=== PATIENT | male | born 1960 | race Caucasian/White ===

== ENCOUNTER 2023-08-04 01:34 | Emergency (ER) | payer SELFPAY ==
[2023-08-04] MEDS ORDERED: Aspirin 81 MG Tab.Chew PO ONE (01:52)
[2023-08-04 01:57] LABS: BASOPHILS ABSOLUTE AUTO 0.04 K/uL (0.00-0.20); BASOPHILS PERCENT AUTO 0.5 % (0.0-1.0); EOSINOPHILS ABSOLUTE AUTO 0.19 K/uL (0.00-0.45); EOSINOPHILS PERCENT AUTO 2.2 % (0.0-6.0); HEMATOCRIT 46.8 % (42.0-52.0); HEMOGLOBIN 15.9 g/dL (14.0-18.0); IMMATURE GRAN ABSOLUTE AUTO 0.02 K/uL (0.00-0.05); IMMATURE GRAN PERCENT AUTO 0.2 % (0.0-0.4); LYMPHOCYTES ABSOLUTE AUTO 1.76 K/uL (1.00-4.80); LYMPHOCYTES PERCENT AUTO 20.5 % (24.0-44.0); MEAN CORPUSCULAR HEMOGLOBIN 30.2 pg (28.0-32.0); MEAN CORPUSCULAR VOLUME 88.8 fL (83.0-99.0); MEAN PLATELET VOLUME 9.8 fL (9.4-12.4); MONOCYTES ABSOLUTE AUTO 0.56 K/uL (0.00-0.80); MONOCYTES PERCENT AUTO 6.5 % (0.0-8.0); NEUTROPHILS ABSOLUTE AUTO 6.03 K/uL (1.80-7.70); NEUTROPHILS PERCENT AUTO 70.1 % (41.0-71.0); PLATELET COUNT,PLT 279 K/uL (150-400); RED BLOOD CELL COUNT 5.27 M/uL (4.52-5.90)
[2023-08-04 02:11] LABS: CALCIUM 8.5 mg/dL (8.5-10.1); CREATININE 1.6 mg/dL (0.8-1.3); EST CRCL DRUG DOSING (CG) 46.91 mL/min
[2023-08-04] MEDS ORDERED: Enoxaparin 100 MG/1 ML Syringe SUBCUT ONE (04:30)
== END 2023-08-04 07:13 ==
LOC: MW.ED 01:34
DX: I24.9 Acute ischemic heart disease, unspecified (principal)
CPT/HCPCS: 36415; 71045; 80048; 84484; 85025; 93005; 96372; 99285; A9270; J1650; 93010

== ENCOUNTER 2023-08-13 15:06 | Emergency (ER) | payer OTHER | END 2023-08-13 16:45 | disposition home or self-care (01) | LOC: MW.ED 15:06 | DX: M79.672 Pain in left foot (principal) | CPT/HCPCS: 93971-26-LT; 93971-LT; 99283 ==